=== PATIENT | male | born 1950 | race Caucasian/White ===

== ENCOUNTER 2025-04-29 13:18 | Outpatient (AMB) | payer MEDICARE, MEDICAID, SELFPAY ==
--- NOTE | 2025-04-29 13:20 | A.OFFVIS_ITS ---
Intake Visit Reasons: 6m Insomnia Allergies No Known Allergies Allergy (Unverified 04/29/25 13:22) Medication List - Last Reconciled 04/29/25 by Lu Monzon CNP apixaban (Eliquis) 5 mg PO BID atorvastatin 10 mg PO DAILY cholecalciferol (vitamin D3) 50 mcg PO QAM cyanocobalamin (vitamin B-12) 1,000 mcg IM QMONTH donepezil 10 mg PO DAILY finasteride 5 mg PO QAM methylphenidate HCl 5 mg PO QAM metoprolol succinate ER 25 mg PO QAM tamsulosin 0.8 mg PO DAILY venlafaxine ER 150 mg PO QAM zolpidem 10 mg PO BEDTIME HPI Comments Details: He fell about 1 week ago, was seen at [facility] ER and had CT which was apparently okay. Working with PT. Getting frontal headaches which he describes as feeling of heaviness with some light sensitivity about every other day. Has eye exam coming up. Sleep was about the same, able to sleep for a few hours with zolpidem which is being prescribed by psychiatry. Mood was so-so. Memory was about the same. Uses wheelchair, transfers from bed to chair. Hemiparesis stable. Sleeps for few hours with zolpidem and takes melatonin as needed. Does not nap during the day. Memory problems are mostly subjective, gives detailed interval history. 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 He's not had any blackout. His last CAT scan showed no change. His narcolepsy is controlled with the Ritalin. [facility] Medical History (Updated 04/29/25 @ 13:28 by Lu Monzon CNP) Hemiparesis Narcolepsy Insomnia Migraine Physical Exam Const Other: Unable to do due to televisit. Telehealth Telehealth Telehealth Platform: Telephone Location of provider rendering services: practice address Location of patient: address on file Patient Identification confirmed using: Name, : Yes Telehealth method: voice only Patient verbally consented to treatment: Yes Patient verbally consented to billing insurance company: Yes Assessment & Plan Assessment & Plan (1) Tension headache: Code(s): G44.209 - Tension-type headache, unspecified, not intractable Category: Medical Plan: Start amitriptyline 10mg 1 tablet at bedtime, use/side effects reviewed. Reviewed labs ordered. Follow up in 3 months or sooner as needed. (2) TBI (traumatic brain injury): Code(s): S06.9XAA - Unspecified intracranial injury with loss of consciousness status unknown, initial encounter Category: Medical Qualifiers: Encounter type: subsequent encounter Loss of consciousness presence/duration: unknown LOC status Qualified Code(s): S06.9XAD - Unspecified intracranial injury with loss of consciousness status unknown, subsequent encounter (3) Insomnia: Code(s): G47.00 - Insomnia, unspecified Category: Medical Qualifiers: Insomnia type: unspecified Qualified Code(s): G47.00 - Insomnia, unspecified Plan: He was taking zolpidem 10mg at bedtime prescribed by psychiatry. (4) Narcolepsy: Code(s): G47.419 - Narcolepsy without cataplexy Category: Medical Qualifiers: Narcolepsy type: due to underlying condition without cataplexy Qualified Code(s): G47.429 - Narcolepsy in conditions classified elsewhere without cataplexy Plan: He was taking methylphenidate 5mg daily prescribed by psychiatry. Plan . Orders: Orders C Reactive Protein Today G44.209 - Tension-type headache, unspecified, not intractable Erythrocyte Sedimentation Rate Today G44.209 - Tension-type headache, unspecified, not intractable Medications: New amitriptyline 10 mg PO BEDTIME 30 tabs 2RF 30 days Coding Level of Care Code Tele Est Pt Level 4 (09668) Diagnoses Tension headache G44.209 Traumatic brain injury, with unknown loss of consciousness status, subsequent encounter S06.9XAD Encounter type: subsequent encounter Loss of consciousness presence/duration: unknown LOC status Insomnia, unspecified type G47.00 Insomnia type: unspecified Narcolepsy due to underlying condition without cataplexy G47.429 Narcolepsy type: due to underlying condition without cataplexy
--- OUTSIDE RECORDS SUMMARY | 2025-04-29 15:18 | XMS_ITS | Clinical Summary ---
Author Organization [facility] Address [address] [place] [id number] Phone Care Team Providers Care Congressional Assistant Name Role Phone Prasad Nagy MD Primary Care Provide r Allergies Active Allergy Reactions Criticality Noted Date Comments Latex 11/16/2022 Adhesive 11/16/2022 Medications zolpidem (AMBIEN) 5 MG tablet Take 10 mg by mouth nightly at bedtime. Active atorvastatin (LIPITOR) 10 MG tablet Take 10 mg by mouth every evening. Active CYANOCOBALAMIN, VITAMIN B-12, INJ Inject as directed every 30 (thirty) days. Active donepeziL (ARICEPT) 10 MG tablet Take 10 mg by mouth every morning. Active polyethylene glycol (MIRALAX) 17 gram packet Take 17 g by mouth every other day. Active methylphenidate HCl (RITALIN) 5 MG tablet Take 5 mg by mouth 2 (two) times a day. Active tamsulosin (FLOMAX) 0.4 mg Cap Take 0.8 mg by mouth daily. Active venlafaxine (EFFEXOR-ER,) 150 mg TR24 Take 150 mg by mouth daily. Active cholecalciferol (VITAMIN D3) 25 MCG (1,000 unit) tablet Take 2,000 Units by mouth daily. Active acetaminophen (TYLENOL) 325 mg tablet Take 650 mg by mouth every 6 (six) hours as needed for fever or pain (specific location in comments). Active cyclobenzaprine (FLEXERIL) 5 MG tablet Take 5 mg by mouth every 8 (eight) hours as needed for muscle spasms. Active finasteride (PROSCAR) 5 mg tablet TAKE 1 TABLET BY MOUTH ONCE DAILY IN THE am 07/11/2023 Active ELIQUIS 5 mg tablet Take 5 mg by mouth 2 (two) times a day. Active hydroCHLOROthia zide 12.5 MG tablet TAKE 1 TABLET BY MOUTH ONCE DAILY IN THE am 02/26/2024 Active melatonin 5 mg Tab Take 1 tablet by mouth daily at 2am 04/29/2024 Active melatonin 5 mg Tab Take 1 tablet by mouth daily at 2am 02/21/2024 Active metoprolol succinate (TOPROL-XL) 25 MG 24 hr tablet TAKE 1 TABLET BY MOUTH DAILY IN THE am Active acetic acid (VOSOL) 2 % otic solution Place 4 drops into the left ear 3 (three) times a day. 15 mL 05/17/2024 Active BD LUER-LORI SYRINGE 3 mL 25 gauge x 1 Syrg Use as directed TO inject b12 shot ONCE 02/11/2025 Active Active Problems Problem Noted Date Diagnosed Date Stage 3b chronic kidney disease 03/18/2024 S/p nephrectomy 03/18/2024 Osteoarthritis of wrist 07/29/2023 Neurogenic bladder 07/29/2023 Narcolepsy 07/29/2023 Left-sided weakness 07/29/2023 Hypertension 07/29/2023 Benign localized prostatic h yperplasia with lower urinary tract symptoms (LUTS) 07/29/2023 Traumatic brain injury 07/29/2023 Encounters Date Type Department Care Team Description 04/16/2025 8:05 AM EST - 04/16/2025 2:17 PM EST Emergency [facility] [address] [place] [id number] Gilbert Mo MD Discharge Disposition: Home or Self Care 04/16/2025 Procedure Pass [facility], Ct Scan - [address] [address] 04/16/2025 Procedure Pass [facility], Ct Scan - [address] [address] 03/06/2025 10:30 PM EDT Ancillary Procedure [facility], Ultrasound - [address] [address] Angélica Phelps MD 03/06/2025 8:16 PM EDT - 03/07/2025 6:14 AM EDT Emergency [facility] [address] [place] [address] Angélica Phelps MD Discharge Disposition: Short Term Hospital 03/06/2025 Procedure Pass [facility], Ct Scan - [facility] [address] [place] [address] 02/27/2025 10:20 AM EDT Office Visit [facility] at [address] [address] Heidy Ghotra, TELESALES SPECIALIST Left-sided thoracic back pain, unspecified chronicity (Primary Dx) from Last 3 Months Immunizations Immunization Administration Dates Next Due INFLUENZA, SPLIT VIRUS, TRIV ALENT W/ PRESERVATIVE IM 03/01/2018,05/11/2017,05/02/2016,05/25 Pneumococcal conjugate PCV13 04/10/2014 Pneumococcal polysaccharide PPSV23 08/29/2012 Tdap 11/02/2015 Social History Tobacco Use Types Packs/Day Years Used Date Smoking Tobacco: Former Cigarettes Smokeless Tobacco: Never Tobacco Cessation:Counseling Given: Not Answered Alcohol Use Standard Drinks/Week Comments Not Currently 0 (1 standard drink = 0.6 oz pur e alcohol) Education Answer Date Recorded Are you interested in more education? Not on sunday e 11/16/2022 Are you concerned about learning? Not on file 11/16/2022 No 11/16/2022 No 11/16/2022 Food Answer Date Recorded Within the past 6 months we worried whether our food would run out before we got money to buy more. Never True 04/16/2025 Within the past 6 months the food we bought just didn't last and we didn't have enough money to get more. Never True Residential Stability Answer Date Recor ded What is your housing situation today? I have audra sing 04/16/2025 How many times have you move d in the past 12 months? Zero (I did not move) 04/16/2025 Paying for Meds Answer Date Recorded Do you have trouble paying for medicines? No 04/16/2025 Paying Utility Bills Answer Date Record ed Do you have trouble paying your heating or elect ricity bill? No 04/16/2025 Transportation Answer Date Recorded Has the lack of transportati on kept you from medical appointments or from getting medications? No 04/16/2025 Digital Access Answer Date Recorded No 04/16/2025 Yes 04/16/2025 Do you have reliable internet access at home? Ye s 04/16/2025 Do you have a device (e.g., phone, tablet, computer) with a working camera? Yes 04/16/2025 Intimate Partner Violence Answer Date R ecorded Are you denied basic needs s uch as food, clothing, or medical care? No 04/16/2025 In the past 12 months have y ou been in a relationship with a person who hurts, threatens, or tries to control you? No 04/16/2025 Are you denied basic needs s uch as food, clothing, or medical care? No 04/16/2025 In the past 12 months have y ou been in a relationship with a person who hurts, threatens, or tries to control you? No 04/16/2025 Sex and Gender Information Value Date Recorded Sex Assigned at Male 11/16/2022 2:02 PM EDT Legal Sex Male 1:44 PM EDT Gender Identity Male 11/16/2022 2:02 PM EDT Sexual Orientation Straight 07/06/2023 9: 15 AM EST Last Filed Vital Signs Vital Sign Reading Time Taken Comments Blood Pressure 135/94 04/16/2025 1:59 PM EST Pulse 74 04/16/2025 1:59 PM EST Temperature 36.8 C (98.2 F) 04/16/2025 1:59 PM EST Respiratory Rate 12 04/16/2025 1:59 PM EST Oxygen Saturation 99% 04/16/2025 1:59 PM EST Inhaled Oxygen Concentration - - Weight 81.6 kg (180 lb) 02/27/2025 10:35 AM EDT Height 172.7 cm (5' 8 ) 02/27/2025 10:35 AM EDT Body Mass Index 27.37 02/27/2025 10:35 AM EDT Plan of Treatment Health Maintenance Due Date Last Done Comments LIPID PANEL 1948 DEPRESSION SCREENING 1960 SMOKING Hx and SMOKELESS TOBACCO SCREENING 1961 HEPATITIS C SCREENING 1966 ZOSTER VACCINES (1 of 2) 1998 PNEUMOCOCCAL VACCINES (50+ years) (3 of 3 - PCV20 or PCV21) 04/10/2019 04/10/2014, 08/29/2012 RSV VACCINE (1 - 1-dose 75+ series) 12/24/2023 INFLUENZA VACCINE (#1) 2024 8, 05/11/2017, 05/02/2016, Additional history exists COVID-19 VACCINE ( - season) 2025 BLOOD PRESSURE 08/28/2025 02/27/2025 Adult Td,Tdap Booster 11/01/2025 11/02/2015 CREATININE LEVEL 03/06/2026 03/06/2025, , 03/18/2024, Additional history exists POTASSIUM LEVEL 03/06/2026 03/06/2025, 07/28, 03/18/2024, Additional history exists HEPATITIS A VACCINES Aged Out No long er eligible based on patient's age to complete this topic HIB VACCINES Aged Out No longer eligi ble based on patient's age to complete this topic MENINGOCOCCAL VACCINES (ACWY) Aged Out No longer eligible based on patient's age to complete this topic MENINGOCOCCAL VACCINES (B) Aged Out N o longer eligible based on patient's age to complete this topic Medical Devices Not on file Procedures Procedure Name Priority Date/Time Associated Diagnosis Comments XR HIP 2 VW LEFT PLUS PELVIS Routine 04/16/2025 8:45 AM EST ECG 12-LEAD STAT 04/16/2025 8:[address] CERVICAL SPINE WITHOUT CONTRAST Routine 04/16/2025 8:[address] HEAD WITHOUT CONTRAST Routine 04/16/2025 8:[address] ANGIO LOWER EXTREMITY WITH AND WITHOUT CONTRAST (LEFT) Routine 03/07/2025 12:36 AM EDT LACTIC ACID (LACTATE) STAT 03/06/2025 11:00 PM EDT PT-INR STAT 03/06/2025 11:00 PM EDT CBC AND DIFFERENTIAL STAT 03/06/2025 11:00 PM EDT BASIC METABOLIC PANEL (BMP) STAT 03/06/2025 11:00 PM EDT US BEDSIDE Routine 03/06/2025 10:25 PM EDT from Last 3 Months Results * XR HIP 2 VW LEFT PLUS PELVIS (04/16/2025 8:45 AM EST) Anatomical Region Laterality Modality Hip Left Computed Radiogr aphy 04/16/2025 8:54 AM EST Impressions 04/16/2025 8:57 AM EST No displaced fracture. Narrative 04/16/2025 8:57 AM EST XR HIP 2 VW LEFT PLUS PELVIS Referring clinician's provided indication for this examination in [facility]: S/P Fall COMPARISON: CT ABDOMEN/PELVIS (KIDNEY STONE) WITHOUT CONTRAST FINDINGS: Pelvis: No acute displaced fracture. Intact sacroiliac joints and pubic symphysis. Chronic deformities along the pubic bodies, right greater than left. Frontal evaluation of the right hip demonstrates moderate degenerative changes. Left hip: No acute displaced fracture. Moderate degenerative changes. Procedure Note Courtney Jose MD - 04/16/2025 XR HIP 2 VW LEFT PLUS PELVIS Referring clinician's provided indication for this examination in Epic:S/P Fall COMPARISON: CT ABDOMEN/PELVIS (KIDNEY STONE) WITHOUT [id number] FINDINGS: Pelvis: No acute displaced fracture. Intact sacroiliac joints and pubicsymphysis. Chronic deformities along the pubic bodies, right greater thanleft. Frontal evaluation of the right hip demonstrates moderatedegenerative changes. Left hip: No acute displaced fracture. Moderate degenerative changes. IMPRESSION: No displaced fracture. us Gilbert Mo MD IMG XR PELVIS Final Resu lt * ECG 12-LEAD (04/16/2025 8:29 AM EST) Ventricular Rate EKG/MIN 67 BPM [facility] Atrial Rate 55 BPM [facility] QRS Duration 84 ms [facility] QT Interval 412 ms [facility] QTC Interval 435 ms [facility] R Wave Boomer 4 degrees [facility] T Wave Boomer -6 degrees [facility] 04/16/2025 8:29 AM EST 04/16/2025 12:59 PM EST Narrative [facility] - 04/16/2025 12:59 PM EST Atrial fibrillation Moderate voltage criteria for LVH, may be normal variant Abnormal ECG When compared with ECG of 14-Sep-2024 02:28, T wave inversion now evident in Inferior leads Confirmed by Eusebio Pichardo ([id number]) on 04/16/2025 12:59:23 PM us Gilbert Mo MD ECG ORDERABLES Final Resu lt [facility] * CT CERVICAL SPINE WITHOUT CONTRAST (04/16/2025 8:04 AM EST) Anatomical Region Laterality Modality C-spine Computed Tomogra phy 04/16/2025 8:16 AM EST Impressions 04/16/2025 8:22 AM EST 1. No acute intracranial findings. 2. No acute fracture or traumatic malalignment of the cervical spine. Narrative 04/16/2025 8:[address] HEAD WITHOUT CONTRAST, CT CERVICAL SPINE WITHOUT CONTRAST Referring clinician's provided indication for this examination in [facility]: * Head trauma, minor (Age >= 65y); on eliquis TECHNIQUE: CTs of the head and cervical spine were performed without intravenous contrast using tailored dose modulation techniques. Images were reconstructed in the axial, coronal, and sagittal planes. COMPARISON: CT HEAD WITHOUT CONTRAST FINDINGS: HEAD: Brain Parenchyma: No midline shift, mass effect, parenchymal hemorrhage, or evidence of acute territorial infarct. Hypodensities in the periventricular white matter, likely a manifestation of chronic small vessel disease. Similar areas of encephalomalacia in the parietal lobes at the vertex related to prior MCA territory infarcts. Ventricular System and Extra-Axial Spaces: The ventricles and sulci are prominent. No extra-axial fluid collections. Basilar cisterns are patent. No hydrocephalus. Osseous and Extracranial Structures: No calvarial fracture or significant soft tissue hematoma. No significant paranasal sinus disease. The mastoid air cells are well aerated. No acute orbital abnormality. CERVICAL SPINE: Alignment and Vertebrae: No acute fracture or malalignment. Vertebral bodies and posterior elements are intact. Discs and Endplates: Multilevel degenerative changes. Other Findings: The spinal canal is patent. No paraspinal hematoma. No pneumothorax in the lung apices. Procedure Note Courtney Jose MD - 04/16/2025 CT HEAD WITHOUT CONTRAST, CT CERVICAL SPINE WITHOUT CONTRAST Referring clinician's provided indication for this examination in [facility]: *Head trauma, minor (Age >= 65y); on eliquis TECHNIQUE: CTs of the head and cervical spine were performed withoutintravenous contrast using tailored dose modulation techniques. Imageswere reconstructed in the axial, coronal, and sagittal planes. COMPARISON: CT HEAD WITHOUT CONTRAST FINDINGS: HEAD: Brain Parenchyma: No midline shift, mass effect, parenchymal hemorrhage,or evidence of acute territorial infarct. Hypodensities in theperiventricular white matter, likely a manifestation of chronic smallvessel disease. Similar areas of encephalomalacia in the parietal lobes atthe vertex related to prior MCA territory infarcts. Ventricular System and Extra-Axial Spaces: The ventricles and sulci areprominent. No extra-axial fluid collections. Basilar cisterns are patent.No hydrocephalus. Osseous and Extracranial Structures: No calvarial fracture or significantsoft tissue hematoma. No significant paranasal sinus disease. The mastoidair cells are well aerated. No acute orbital abnormality. CERVICAL SPINE: Alignment and Vertebrae: No acute fracture or malalignment. Vertebralbodies and posterior elements are intact. Discs and Endplates: Multilevel degenerative changes. Other Findings: The spinal canal is patent. No paraspinal hematoma. Nopneumothorax in the lung apices. IMPRESSION: 1. No acute intracranial findings. 2. No acute fracture or traumatic malalignment of the cervical spine. Gilbert Mo MD IMG CT XSPECIALTY ORDERABL ES Final Result * CT HEAD WITHOUT CONTRAST (04/16/2025 8:04 AM EST) Anatomical Region Laterality Modality Head Computed Tomogra phy 04/16/2025 8:16 AM EST Impressions 04/16/2025 8:22 AM EST 1. No acute intracranial findings. 2. No acute fracture or traumatic malalignment of the cervical spine. Narrative 04/16/2025 8:[address] HEAD WITHOUT CONTRAST, CT CERVICAL SPINE WITHOUT CONTRAST Referring clinician's provided indication for this examination in [facility]: * Head trauma, minor (Age >= 65y); on eliquis TECHNIQUE: CTs of the head and cervical spine were performed without intravenous contrast using tailored dose modulation techniques. Images were reconstructed in the axial, coronal, and sagittal planes. COMPARISON: CT HEAD WITHOUT CONTRAST FINDINGS: HEAD: Brain Parenchyma: No midline shift, mass effect, parenchymal hemorrhage, or evidence of acute territorial infarct. Hypodensities in the periventricular white matter, likely a manifestation of chronic small vessel disease. Similar areas of encephalomalacia in the parietal lobes at the vertex related to prior MCA territory infarcts. Ventricular System and Extra-Axial Spaces: The ventricles and sulci are prominent. No extra-axial fluid collections. Basilar cisterns are patent. No hydrocephalus. Osseous and Extracranial Structures: No calvarial fracture or significant soft tissue hematoma. No significant paranasal sinus disease. The mastoid air cells are well aerated. No acute orbital abnormality. CERVICAL SPINE: Alignment and Vertebrae: No acute fracture or malalignment. Vertebral bodies and posterior elements are intact. Discs and Endplates: Multilevel degenerative changes. Other Findings: The spinal canal is patent. No paraspinal hematoma. No pneumothorax in the lung apices. Procedure Note Courtney Jose MD - 04/16/2025 CT HEAD WITHOUT CONTRAST, CT CERVICAL SPINE WITHOUT CONTRAST Referring clinician's provided indication for this examination in [facility]: *Head trauma, minor (Age >= 65y); on eliquis TECHNIQUE: CTs of the head and cervical spine were performed withoutintravenous contrast using tailored dose modulation techniques. Imageswere reconstructed in the axial, coronal, and sagittal planes. COMPARISON: CT HEAD WITHOUT CONTRAST FINDINGS: HEAD: Brain Parenchyma: No midline shift, mass effect, parenchymal hemorrhage,or evidence of acute territorial infarct. Hypodensities in theperiventricular white matter, likely a manifestation of chronic smallvessel disease. Similar areas of encephalomalacia in the parietal lobes atthe vertex related to prior MCA territory infarcts. Ventricular System and Extra-Axial Spaces: The ventricles and sulci areprominent. No extra-axial fluid collections. Basilar cisterns are patent.No hydrocephalus. Osseous and Extracranial Structures: No calvarial fracture or significantsoft tissue hematoma. No significant paranasal sinus disease. The mastoidair cells are well aerated. No acute orbital abnormality. CERVICAL SPINE: Alignment and Vertebrae: No acute fracture or malalignment. Vertebralbodies and posterior elements are intact. Discs and Endplates: Multilevel degenerative changes. Other Findings: The spinal canal is patent. No paraspinal hematoma. Nopneumothorax in the lung apices. IMPRESSION: 1. No acute intracranial findings. 2. No acute fracture or traumatic malalignment of the cervical spine. Gilbert Mo MD IMNatalie CT HEAD/NECK Final Res ult * CT ANGIO LOWER EXTREMITY WITH AND WITHOUT CONTRAST (LEFT) (03/07/2025 12:36 AM EDT) Anatomical Region Laterality Modality Foot Left, Ankle Left, Knee Left, Thigh Left, Hi p Left Computed Tomography 03/07/2025 4:33 AM EDT Impressions 03/07/2025 4:47 AM EDT Impression: 1. Diffuse atheromatous disease of the left lower extremity arterial vasculature with short segment occlusion of the anterior tibial artery with reconstitution of the dorsalis pedis artery. 2. Occlusion of the proximal posterior tibial artery with distal reconstitution at the level of the ankle. 3. Short segment occlusion of the origin of the peroneal artery with immediate reconstitution and otherwise patency throughout its course. 4. Diffuse subcutaneous edema in the distal left lower extremity. Narrative 03/07/2025 4:47 AM EDT Procedure: CT ANGIO LOWER EXTREMITY WITH AND WITHOUT CONTRAST (LEFT) Technique: Axial images of the lower pelvis and the were obtained from the level of L4 to the feet before and following administration of intravenous contrast per dissection protocol. 3-D MIP images were made from the axial postcontrast data set and reviewed. History: 74 years Male * Claudication or leg ischemia Comparison: Lower extremity ultrasound from May 08, 2024 Findings: Abdominal vasculature: Abdominal/pelvic arterial vasculature: Distal Abdominal Aorta: Diffuse atheromatous disease without aneurysmal dilation. Origin of the HUMBERTO is patent. Iliac Arteries: Diffuse atheromatous disease of the left common iliac artery with chronic appearing focal dissection versus ulcerative plaque. Moderate stenosis of the origin of the internal iliac artery. No significant stenosis of the external iliac artery. Left lower extremity arterial tree: Evaluation of the level of the knee is limited secondary to streak artifact. Common Femoral Artery: The common femoral artery is normal in caliber without flow limiting stenosis. Superficial Femoral Artery: There is mild ASVD of the superficial femoral artery, but this is not flow limiting. Popliteal Artery: Multifocal atheromatous disease with moderate stenosis. Trifurcation: Multifocal atheromatous disease of the anterior tibial artery with occlusion proximally and reconstitution of the dorsalis pedis artery. The posterior tibial artery is occluded proximally with distal reconstitution at the level of the ankle and patent plantar arteries. Short segment occlusion of the origin of the peroneal artery with immediate reconstitution and patency throughout its course. Lower abdomen: Bowel: No evidence of obstruction within the [id number]. Colonic diverticulosis. Bladder: Urinary bladder is distended without wall thickening. Osseous structures: Chronic fracture deformity of the right superior and inferior pubic rami. Multilevel degenerative change of the partially visualized spine. Degenerative changes of the left knee and ankle. Prior left inguinal hernia repair. Diffuse subcutaneous edema in the distal left lower extremity. Procedure Note Dm Stephen MD - 03/07/2025 Procedure: CT ANGIO LOWER EXTREMITY WITH AND WITHOUT CONTRAST (LEFT) Technique: Axial images of the lower pelvis and the were obtained from thelevel of L4 to the feet before and following administration of intravenouscontrast per dissection protocol. 3-D MIP images were made from the axialpostcontrast data set and reviewed. History: 74 years Male * Claudication or leg ischemia Comparison: Lower extremity ultrasound from May 08, 2024 Findings: Abdominal vasculature: Abdominal/pelvic arterial vasculature: Distal Abdominal Aorta: Diffuse atheromatous disease without aneurysmaldilation. Origin of the HUMBERTO is patent. Iliac Arteries: Diffuse atheromatous disease of the left common iliacartery with chronic appearing focal dissection versus ulcerative plaque.Moderate stenosis of the origin of the internal iliac artery. Nosignificant stenosis of the external iliac artery. Left lower extremity arterial tree: Evaluation of the level of the knee is limited secondary to streakartifact. Common Femoral Artery: The common femoral artery is normal in caliberwithout flow limiting stenosis. Superficial Femoral Artery: There is mild ASVD of the superficial femoralartery, but this is not flow limiting. Popliteal Artery: Multifocal atheromatous disease with moderatestenosis. Trifurcation: Multifocal atheromatous disease of the anterior tibialartery with occlusion proximally and reconstitution of the dorsalis pedisartery. The posterior tibial artery is occluded proximally with distalreconstitution at the level of the ankle and patent plantar arteries.Short segment occlusion of the origin of the peroneal artery withimmediate reconstitution and patency throughout its course. Lower abdomen: Bowel: No evidence of obstruction within the [id number]. Colonicdiverticulosis. Bladder: Urinary bladder is distended without wall thickening. Osseous structures: Chronic fracture deformity of the right superior andinferior pubic rami. Multilevel degenerative change of the partiallyvisualized spine. Degenerative changes of the left knee and ankle. Priorleft inguinal hernia repair. Diffuse subcutaneous edema in the distal leftlower extremity. IMPRESSION: Impression: 1. Diffuse atheromatous disease of the left lower extremity arterialvasculature with short segment occlusion of the anterior tibial arterywith reconstitution of the dorsalis pedis artery. 2. Occlusion of the proximal posterior tibial artery with distalreconstitution at the level of the ankle. 3. Short segment occlusion of the origin of the peroneal artery withimmediate reconstitution and otherwise patency throughout its course. 4. Diffuse subcutaneous edema in the distal left lower extremity. us Angélica Phelps MD IMG CT EXTREMITY Final Resul t * (ABNORMAL) PT-INR (03/06/2025 11:00 PM EDT) PT 14.6(H) 10.2 - 12.9 sec [facility] INR 1.2(H) 0.9 - 1.1 [facility] Comment:Therapeutic range fo r oral Vitamin K antagonists: 2.0-3.5 Blood 03/06/2025 11:0 0 PM EDT 03/06/2025 11:03 PM EDT us Angélica Phelps MD LAB BLOOD BKR ORDERABLES Fin al Result [facility] [address] [place], [place] [id number] * (ABNORMAL) CBC and differential (03/06/2025 11:00 PM EDT) WBC 6.14 4.00 - 11.00 K/uL [facility] RBC 4.57 4.50 - 5.90 M/uL [facility] HGB 13.0(L) 13.5 - 17.5 g/dL [facility] HCT 40.5(L) 41.0 - 53.0 % [facility] PLT 155 150 - 450 K/uL [facility] MCV 88.6 80.0 - 100.0 [facility] MCH 28.4 27.0 - 31.0 pg [facility] MCHC 32.1 32.0 - 36.0 g/dL [facility] RDW 13.5 11.5 - 14.5 % [facility] MPV 10.0 8.4 - 12.0 fL [facility] NRBC 0.00 0.00 /100 WBCs [facility] ABSOLUTE NRBC 0.00 0.00 K/uL [facility] DIFF METHOD Auto [facility] NEUTS 57.0 48.0 - 76.0 % [facility] LYMPHS 27.5 18.0 - 41.0 % [facility] MONOS 10.9 4.0 - 11.0 % [facility] EOS 4.1 0.0 - 5.0 % [facility] BASOS 0.3 0.0 - 1.5 % [facility] Granulocytes, immature (%) 0.2 0.0 - 0.9 % [facility] ABSOLUTE NEUTS 3.50 1.92 - 7.60 K/uL [facility] ABSOLUTE LYMPHS 1.69 0.72 - 4.10 K/uL [facility] ABSOLUTE MONOS 0.67 0.16 - 1.10 K/uL [facility] ABSOLUTE EOS 0.25 0.00 - 0.50 K/uL [facility] ABSOLUTE BASOS 0.02 0.00 - 0.15 K/uL [facility] Granulocytes, immature 0.01 0.00 - 0.09 K/uL [facility] Blood 03/06/2025 11:0 0 PM EDT 03/06/2025 11:03 PM EDT Angélica Phelps MD LAB BLOOD BKR ORDERABLES Fin al Result Performing Organization Address [facility]/ZIP Co de Phone Number [address] [address] * Lactate (03/06/2025 11:00 PM EDT) LACTATE 0.80 0.50 - 2.20 mmol/L [facility] Blood 03/06/2025 11:0 0 PM EDT 03/06/2025 11:03 PM EDT Angélica Phelps MD LAB BLOOD BKR ORDERABLES Fin al Result Performing Organization Address City/[facility]/ZIP Co de Phone Number [address] [address] * (ABNORMAL) Basic metabolic panel (03/06/2025 11:00 PM EDT) SODIUM 139 133 - 146 mmol/L [facility] CHLORIDE 104 96 - 108 mmol/L [facility] POTASSIUM 4.8 3.3 - 5.1 mmol/L [facility] CO2 26 21 - 35 mmol/L [facility] BUN 26(H) 6 - 19 mg/dL [facility] CREATININE 1.50 0.5 - 1.5 mg/dL [facility] GLUCOSE 95 70 - 99 mg/dL [facility] CALCIUM 9.0 8.4 - 10.3 mg/dL [facility] EGFR 48(L) >59 mL/min/1.7 3m2 [facility] Comment:Estimated glomerular filtration rate calculated using the CKD-EPI refit equation. ANION GAP 14 10 - 20 mmol/L [facility] Blood 03/06/2025 11:0 0 PM EDT 03/06/2025 11:03 PM EDT us Angélica Phelps MD LAB BLOOD BKR ORDERABLES Fin al Result [facility] [address] [place] [address] * US BEDSIDE (03/06/2025 10:25 PM EDT) Anatomical Region Laterality Modality Ultrasound Narrative 03/06/2025 10:25 PM EDT Angélica Phelps MD 03/06/2025 10:47 PM Bedside Ultrasound Date/Time: 03/06/2025 10:25 PM Performed by: Angélica Phelps MD Authorized by: Angélica Phelps MD Exam Type: Soft Tissue Soft Tissue Exam Findings & Impression: Indications: patient with pain Other Indications: Unable to palpate pulses Other Findings: Faint DP and PT pulses visualized on color doppler Overall Impression Comments: Faint pulses visualized on color doppler Images: Images Saved: Yes Accession Number: [id number] us Angélica Phelps MD IMG POINT OF CARE EXAMS Hollie l Result from Last 3 Months Insurance MEDICARE PART A & B [facility] MEDIC[facility] PART A & B [facility] PART A & B [place] PART A & [facility] MEDICARE PART A & [place] MED[place] PART A & B [facility] Care Teams Congressional Assistant Relationship Specialty Start Date End Date [facility] [address] [address] PCP - General Family Medicine 02/27/25 Additional Source Comments The information contained in this document represents components of the legal health record. It is not the complete legal health record.[facility]
--- OUTSIDE RECORDS SUMMARY | 2025-04-29 15:18 | XMS_ITS | Encounter Summary ---
Author Organization [facility] Address [address] [place] [phone] Phone Care Team Providers Care Byproducts Extractor Name Role Phone Mignon New MD Primary Care Provider + Prasad Nagy MD Primary Care Provide r Encounter Details Date Type Department Care Team (Late st Contact Info) Description 09/14/2024 Procedure Pass [facility], Ct Scan - [address] [address] Social History Tobacco Use Types Packs/Day Years Used Date Smoking Tobacco: Former Cigarettes Smokeless Tobacco: Never Alcohol Use Standard Drinks/Week Comments Not Currently 0 (1 standard drink = 0.6 oz pur e alcohol) Education Answer Date Recorded Are you interested in more education? Not on sunday e 11/16/2022 Are you concerned about learning? Not on file 11/16/2022 No 11/16/2022 No 11/16/2022 Digital Access Answer Date Recorded No 11/16/2022 No 11/16/2022 Reliable internet access at home? Not on file 11/16/2022 Device with a working camera? Not on file Intimate Partner Violence Answer Date R ecorded Are you denied basic needs s uch as food, clothing, or medical care? No 09/14/2024 In the past 12 months have y ou been in a relationship with a person who hurts, threatens, or tries to control you? No 09/14/2024 Are you denied basic needs s uch as food, clothing, or medical care? No 09/14/2024 In the past 12 months have y ou been in a relationship with a person who hurts, threatens, or tries to control you? No 09/14/2024 Sex and Gender Information Value Date Recorded Sex Assigned at Male 11/16/2022 2:02 PM EDT Legal Sex Male 1:44 PM EDT Gender Identity Male 11/16/2022 2:02 PM EDT Sexual Orientation Straight 07/06/2023 9: 15 AM EST documented as of this encounter Functional Status * Calculated C-SSRS Risk Score (Lifetime/Recent) Answer Date of Assessment Author No Risk Indicated 09/14/2024 2:11 AM EDT Bernadette Amaya RN * [place] Suicide Severity Rating Scale (Screener/Recent Self-Report) Question Answer Date of Assessment Author 1. Wish to be (Past 1 Month) No 09/14/2024 2:11 AM EDT Bernadette Amaya RN 2. Non-Specific Active Suici tejas Thoughts (Past 1 Month) No 09/14/2024 2:11 AM EDT Bernadette Amaya RN 6. Suicidal Behavior (Lifetime) No 2:11 AM EDT Bernadette Amaya RN documented as of this encounter Plan of Treatment Not on file documented as of this encounter Visit Diagnoses Not on filedocumented in this encounter Care Teams Byproducts Extractor Relationship Specialty Start Date End Date Mignon New MD [address] [place] [address] PCP - General Internal Medicine 05/03/24 02/26/25 [place] [address] [address] PCP - General Family Medicine 02/27/25 documented as of this encounter Additional Source Comments The information contained in this document represents components of the legal health record. It is not the complete legal health record.[facility]
--- OUTSIDE RECORDS SUMMARY | 2025-04-29 15:18 | XMS_ITS | Encounter Summary ---
Author Organization [facility] Address [address] [place] [phone] Phone Care Team Providers Care Abstract Writer Name Role Phone Mignon New MD Primary Care Provider + Prasad Nagy MD Primary Care Provide r Encounter Details Date Type Department Care Team (Late st Contact Info) Description 08/23/2024 Procedure Pass [facility], Ct Scan - [address] [address] Social History Tobacco Use Types Packs/Day Years [...] as food, clothing, or medical care? No 08/24/2024 In the past 12 months have y ou been in a relationship with a person who hurts, threatens, or tries to control you? No 08/24/2024 Are you denied basic needs s uch as food, clothing, or medical care? No 08/24/2024 In the past 12 months have y ou been in a relationship with a person who hurts, threatens, or tries to control you? No 08/24/2024 Sex and Gender Information Value Date Recorded Sex Assigned at Male 11/16/2022 2:02 PM EDT Legal Sex Male 1:44 PM EDT Gender Identity Male 11/16/2022 2:02 PM EDT Sexual Orientation Straight 07/06/2023 9: 15 AM EST documented as of this encounter Functional Status * Calculated C-SSRS Risk Score (Lifetime/Recent) Answer Date of Assessment Author No Risk Indicated 08/24/2024 12:12 AM EDT Samantha Alvarado RN * [place] Suicide Severity Rating Scale (Screener/Recent Self-Report) Question Answer Date of Assessment Author 1. Wish to be (Past 1 Month) No 08/24/2024 12:12 AM EDT Fe Mcmahon RN 2. Non-Specific Active Suici tejas Thoughts (Past 1 Month) No 08/24/2024 12:12 AM EDT Tammi Mcmahon RN 6. Suicidal Behavior (Lifetime) No 12:12 AM EDT Samantha Mcmahon RN documented as of this encounter Plan of Treatment Not on file documented as of this encounter Visit Diagnoses Not on filedocumented in this encounter Care Teams Abstract Writer Relationship Specialty Start Date End Date Mignon New MD [address] [place] [address] PCP - General Internal Medicine 05/03/24 02/26/25 [place] [address] [address] PCP - General Family Medicine 02/27/25 documented as of this encounter Additional Source Comments The information contained in this document represents components of the legal health record. It is not the complete legal health record.[facility]
--- OUTSIDE RECORDS SUMMARY | 2025-04-29 15:18 | XMS_ITS | Encounter Summary ---
Author Organization [facility] Address [address] [place] [address] Phone Care Team Providers Care Construction Manager Name Role Phone Mignon New MD Primary Care Provider + Prasad Nagy MD Primary Care Provide r Encounter Details Date Type Department Care Team (Late st Contact Info) Description 06/21/2024 Procedure Pass [facility], Ct Scan - [address] [address] Social History Tobacco Use Types Packs/Day Years [...] as food, clothing, or medical care? No 06/21/2024 In the past 12 months have y ou been in a relationship with a person who hurts, threatens, or tries to control you? No 06/21/2024 Are you denied basic needs s uch as food, clothing, or medical care? No 06/21/2024 In the past 12 months have y ou been in a relationship with a person who hurts, threatens, or tries to control you? No 06/21/2024 Sex and Gender Information Value Date Recorded Sex Assigned at Male 11/16/2022 2:02 PM EDT Legal Sex Male 1:44 PM EDT Gender Identity Male 11/16/2022 2:02 PM EDT Sexual Orientation Straight 07/06/2023 9: 15 AM EST documented as of this encounter Functional Status * Calculated C-SSRS Risk Score (Lifetime/Recent) Answer Date of Assessment Author No Risk Indicated 06/21/2024 2:51 AM Rolo Schmidt RN * [place] Suicide Severity Rating Scale (Screener/Recent Self-Report) Question Answer Date of Assessment Author 1. Wish to be (Past 1 Month) No 06/21/2024 2:51 AM Rolo Schmidt RN 2. Non-Specific Active Suicidal Thoughts (Past 1 Month) No 06/21/2024 2:51 AM Rolo Schmidt RN 6. Suicidal Behavior (Lifetime) No 06/21/2024 2:51 AM Rolo Schmidt RN documented as of this encounter Plan of Treatment Not on file documented as of this encounter Visit Diagnoses Not on filedocumented in this encounter Care Teams Construction Manager Relationship Specialty Start Date End Date Mignon New MD [address] [place] [address] PCP - General Internal Medicine 05/03/24 02/26/25 Prasad Nagy MD [address] [address] [place] [address] PCP - General Family Medicine 02/27/25 documented as of this encounter Additional Source Comments The information contained in this document represents components of the legal health record. It is not the complete legal health record.[facility]
--- OUTSIDE RECORDS SUMMARY | 2025-04-29 15:18 | XMS_ITS | Encounter Summary ---
Author Organization [facility] Address [address] [place] [phone] Phone Care Team Providers Care Braider Tender Name Role Phone Mignon New MD Primary Care Provider + Prasad Nagy MD Primary Care Provide r Encounter Details Date Type Department Care Team (Late st Contact Info) Description 06/21/2024 Procedure Pass [facility], Ct Scan - [address] [address] Social History Tobacco Use Types Packs/Day Years [...] 06/21/2024 2:51 AM Rolo Schmidt RN * [place] Suicide Severity Rating Scale (Screener/Recent Self-Report) Question [...] on filedocumented in this encounter Care Teams Braider Tender Relationship Specialty Start Date End Date Mignon New MD [address] [place] [address] PCP - General Internal Medicine 05/03/24 02/26/25 Prasad Nagy MD [address] [address] [place] [address] PCP - General Family Medicine 02/27/25 documented as of this encounter Additional Source Comments The information contained in this document represents components of the legal health record. It is not the complete legal health record.[facility]
--- OUTSIDE RECORDS SUMMARY | 2025-04-29 15:18 | XMS_ITS | Encounter Summary ---
Author Organization [facility] Address [address] [facility] [address] [place] [address] Phone Care Team Providers Care Agriculture Intern Name Role Phone Unknown, Unknown Primary Care Provider Mignon Salinas MD Primary Care Provider + Prasad Nagy MD Primary Care Provide r Reason for Referral * MRI/CAT Scan - Closed Specialty Diagnoses / Procedures Referred By Contac t Referred To Contact Radiology Diagnoses S/p nephrectomy Procedures CT Abdomen Only (No Pelvis) Bernard Luz MD [address] [address] Phone: tel: fax: [email or web address] Referral ID Status Reason Start Date Expiration Date Visits Re quested Visits Authorized [id number] Closed 03/21/2024 03/21/2025 1 1 Encounter Details Date Type Department Care Team (Latest Contact Info) Description 03/21/2024 Transcribe Orders Virtual Department [address] [place] [address] Bernard Luz MD [address] [address] [email or web address] S/p nephrectomy (Primary Dx) Social History Tobacco Use Types Packs/Day Years [...] with a working camera? Not on file Sex and Gender Information Value Date Recorded Sex Assigned at Male 11/16/2022 2:02 PM EDT Legal Sex Male 1:44 PM EDT Gender Identity Male 11/16/2022 2:02 PM EDT Sexual Orientation Straight 07/06/2023 9: 15 AM EST documented as of this encounter Plan of Treatment Not on file documented as of this encounter Results * CT ABDOMEN WITHOUT CONTRAST (05/03/2024 9:28 AM EST) [facility]GB IMG RECOMMENDATION COMMENT 4 mm left lower lobe pulmonary nodule; left lower lobe pulmonary surrounding groundglass; Differential: left lower lobe pulmonary infectious inflammatory process [facility] Anatomical Region Laterality Modality Abdomen, Abdominal Vasculature C omputed Tomography 05/06/2024 2:48 PM EST Impressions 05/06/2024 2:55 PM EST 1. Stable postsurgical changes status post left nephrectomy and adrenalectomy. No acute findings within the upper abdomen. 2. 4 mm left lower lobe pulmonary nodule with surrounding groundglass. This is favored to represent an infectious/inflammatory process. This is new when compared to 11/16/2022. Dedicated chest CT in 3 months should be considered to assess for resolution/stability. Narrative 05/06/2024 2:[address] ABDOMEN WITHOUT CONTRAST Referring clinician's provided indication for this examination in Epic: Outside Radiology Order; s/p nephrectomy TECHNIQUE: Multidetector-row CT of the abdomen was performed without intravenous contrast using tailored dose modulation techniques. Images were reconstructed in the axial, coronal, and sagittal planes. COMPARISON: Abdomen/pelvis CT 11/16/2022 ABSENCE OF INTRAVENOUS CONTRAST DECREASES SENSITIVITY FOR DETECTION OF FOCAL LESIONS AND VASCULAR PATHOLOGY. FINDINGS: Lower Chest: Calcified aortic annulus and leaflets. Moderate calcification of the mitral annulus. Calcification of the coronary arteries. Tiny hiatal hernia. Subpleural reticular opacities bilaterally, right greater than left. There is a 4 mm nodule in the left lower lobe (series 4, image 1:30) with surrounding groundglass, new when compared to prior. Liver: No focal lesions. Biliary: No biliary ductal dilatation. Spleen: No splenomegaly or focal lesions. Pancreas: No main pancreatic ductal dilation or peripancreatic inflammatory change. Extensive calcifications within the pancreatic parenchyma, likely vascular. Focal calcification within the pancreatic head are favored to represent parenchymal calcifications. Adrenal Glands: Mild thickening of the right adrenal gland. The left adrenal gland is surgically absent. Kidneys/Ureters: No right-sided hydronephrosis or nephrolithiasis. There is a subcentimeter right lateral mid renal lesion measuring 9 mm (series 3, image 33), too small to accurately characterize and not significantly changed. The left kidney is surgically absent. No suspicious findings within the nephrectomy bed within limitations of unenhanced technique. Bowel: There is no evidence of intestinal obstruction. Segments of the colon are collapsed and suboptimally assessed. Diverticulosis. No diverticulitis. The appendix is visualized and is normal. Peritoneum/Retroperitoneum: No masses, pneumoperitoneum, or fluid. Lymph Nodes: Scattered abdominopelvic lymph nodes which do not meet pathologic criteria by size. Vessels: Severe atherosclerotic vascular calcification. No evidence of aneurysm. Please note, patency cannot be assessed without intravenous contrast. Bones/Soft Tissues: Heterogeneous osseous demineralization. Healed right posterior rib fractures. Multilevel degenerative changes of the thoracolumbar spine. No destructive bony lytic or blastic lesions. Fatty infiltration of the abdominal musculature. Impression deformity of the L2 vertebral body, unchanged. Prominent superior endplate Schmorl's node formation. Minimal anterolisthesis of L4 on L5. Procedure Note Dorene Pederson MD - 05/06/2024 CT ABDOMEN WITHOUT CONTRAST Referring clinician's provided indication for this examination in Epic:Outside Radiology Order; s/p nephrectomy TECHNIQUE: Multidetector-row CT of the abdomen was performed withoutintravenous contrast using tailored dose modulation techniques. Imageswere reconstructed in the axial, coronal, and sagittal planes. COMPARISON: Abdomen/pelvis CT 11/16/2022 ABSENCE OF INTRAVENOUS CONTRAST DECREASES SENSITIVITY FOR DETECTION OFFOCAL LESIONS AND VASCULAR PATHOLOGY. FINDINGS: Lower Chest: Calcified aortic annulus and leaflets. Moderate calcificationof the mitral annulus. Calcification of the coronary arteries. Tiny hiatalhernia. Subpleural reticular opacities bilaterally, right greater thanleft. There is a 4 mm nodule in the left lower lobe (series 4, image 1:30)with surrounding groundglass, new when compared to prior. Liver: No focal lesions. Biliary: No biliary ductal dilatation. Spleen: No splenomegaly or focal lesions. Pancreas: No main pancreatic ductal dilation or peripancreaticinflammatory change. Extensive calcifications within the pancreaticparenchyma, likely vascular. Focal calcification within the pancreatichead are favored to represent parenchymal calcifications. Adrenal Glands: Mild thickening of the right adrenal gland. The leftadrenal gland is surgically absent. Kidneys/Ureters: No right-sided hydronephrosis or nephrolithiasis. Thereis a subcentimeter right lateral mid renal lesion measuring 9 mm (series3, image 33), too small to accurately characterize and not significantlychanged. The left kidney is surgically absent. No suspicious findingswithin the nephrectomy bed within limitations of unenhanced technique. Bowel: There is no evidence of intestinal obstruction. Segments of thecolon are collapsed and suboptimally assessed. Diverticulosis. Nodiverticulitis. The appendix is visualized and is normal. Peritoneum/Retroperitoneum: No masses, pneumoperitoneum, or fluid. Lymph Nodes: Scattered abdominopelvic lymph nodes which do not meetpathologic criteria by size. Vessels: Severe atherosclerotic vascular calcification. No evidence ofaneurysm. Please note, patency cannot be assessed without intravenouscontrast. Bones/Soft Tissues: Heterogeneous osseous demineralization. Healed rightposterior rib fractures. Multilevel degenerative changes of thethoracolumbar spine. No destructive bony lytic or blastic lesions. Fattyinfiltration of the abdominal musculature. Impression deformity of the [place] body, unchanged. Prominent superior endplate Schmorl's nodeformation. Minimal anterolisthesis of L4 on L5. IMPRESSION: 1. Stable postsurgical changes status post left nephrectomy andadrenalectomy. No acute findings within the upper abdomen. 2. 4 mm left lower lobe pulmonary nodule with surrounding groundglass.This is favored to represent an infectious/inflammatory process. This isnew when compared to 11/16/2022. Dedicated chest CT in 3 months should beconsidered to assess for resolution/stability. us Bernard Luz MD IMG CT XSPECIALTY ORDERABLES Fin al Result documented in this encounter Visit Diagnoses Diagnosis S/p nephrectomy- Primary Acquired absence of kidney S/p nephrectomy Acquired absence of kidney documented in this encounter Care Teams Agriculture Intern Relationship Specialty Start Date End Date Unknown, Unknown, MD PCP - General 03/19/24 05/02/24 Mignon New MD [address] [facility] [address] [place] [address] PCP - General Internal Medicine 05/03/24 02/26/25 Prasad Nagy MD [address] [facility] [address] [place] [address] PCP - General Family Medicine 02/27/25 documented as of this encounter Additional Source Comments The information contained in this document represents components of the legal health record. It is not the complete legal health record.[facility]
--- OUTSIDE RECORDS SUMMARY | 2025-04-29 15:18 | XMS_ITS | Encounter Summary ---
Author Organization [facility] Address [address] [facility] [address] [place] [address] Phone Care Team Providers Care Cardiovascular Technologist Name Role Phone Mignno New MD Primary Care Provider + Mignon New MD Primary Care Provider + Unknown, Unknown Primary Care Provider Mignon Salinas MD Primary Care Provider + Prasad Nagy MD Primary Care Provide r Encounter Details Date Type Department Care Team (Latest Contact Info) Description 09/26/2023 Transcribe Orders Virtual Department [address] [place] [address] Bernard Luz MD [address] [facility] [address] [place] [address] [email or web address] Stage 3a chronic kidney disease (Primary Dx); History of nephrectomy Social History Tobacco Use Types Packs/Day Years [...] documented as of this encounter Results * US Kidneys (10/10/2023 3:02 PM EDT) Anatomical Region Laterality Modality Abdomen, Kidney Ultrasound 10/10/2023 6:04 PM EDT Impressions 10/10/2023 6:05 PM EDT Unremarkable right kidney. Left nephrectomy. Narrative 10/10/2023 6:05 PM EDT US KIDNEYS Referring clinician's provided indication for this examination in [facility]: Outside Radiology Order; Stage 3a chronic kidney disease (HCC)// History of nephrectomy TECHNIQUE: Kidney Ultrasound. COMPARISON: CT November 16, 2022 FINDINGS: Right Kidney: Size: 9.9 cm 1.1 cm simple cyst. No stones or hydronephrosis. Left Kidney: Left nephrostomy Bladder: Normal. Procedure Note Alexi Lopez MD, LV - 10/10/2023 US KIDNEYS Referring clinician's provided indication for this examination in Epic:Outside Radiology Order; Stage 3a chronic kidney disease (HCC)// Historyof nephrectomy TECHNIQUE: Kidney Ultrasound. COMPARISON: CT November 16, 2022 FINDINGS: Right Kidney: Size: 9.9 cm 1.1 cm simple cyst. No stones or hydronephrosis. Left Kidney: Left nephrostomy Bladder: Normal. IMPRESSION: Unremarkable right kidney. Left nephrectomy. Bernard Luz MD [facility] US RENAL Final Result documented in this encounter Visit Diagnoses Diagnosis Stage 3a chronic kidney disease- Primary History of nephrectomy Acquired absence of kidney Stage 3a chronic kidney disease History of nephrectomy Acquired absence of kidney documented in this encounter Care Teams Cardiovascular Technologist Relationship Specialty Start Date End Date Mignon New MD PCP - General Internal Medicine 07/06/23 10/09/23 Mignon New MD PCP - General Internal Medicine 10/10/23 03/18/24 Unknown, Unknown, MD PCP - General 03/19/24 05/02/24 Mignon New MD [address] [place] [address] PCP - General Internal Medicine 05/03/24 02/26/25 Prasad Nagy MD [address] [facility] [address] [place] [address] PCP - General Family Medicine 02/27/25 documented as of this encounter Additional Source Comments The information contained in this document represents components of the legal health record. It is not the complete legal health record.[facility]
--- OUTSIDE RECORDS SUMMARY | 2025-04-29 15:18 | XMS_ITS | Encounter Summary ---
Author Organization [facility] Address [address] [place] [address] Phone Care Team Providers Care Assistant Professor Name Role Phone Pcp, Unknown Primary Care Provider Mignon Muller MD Primary Care Provider + Mignon New MD Primary Care Provider + Unknown, Unknown Primary Care Provider Mignon Salinas MD Primary Care Provider + Prasad Nagy MD Primary Care Provide r Encounter Details Date Type Department Care Team (Late st Contact Info) Description 11/16/2022 Procedure Pass [facility], Ct Scan - [address] [address] Social History Tobacco Use Types Packs/Day Years Used Date Smoking Tobacco: Former Cigarettes Alcohol Use Standard Drinks/Week Comments Not Currently [...] Date of Assessment Author No Risk Indicated 11/16/2022 2:02 PM EDT Marianne Padilla RN * [place] Suicide Severity Rating Scale (Screener/Recent Self-Report) Question Answer Date of Assessment Author 1. Wish to be (Past 1 Month) No 023 2:02 PM EDT Marianne Padilla RN 2. Non-Specific Active Suici tejas Thoughts (Past 1 Month) No 11/16/2022 2:02 PM EDT Marianne Padilla RN 6. Suicidal Behavior (Lifetime) No 2:02 PM EDT Marianne Padilla RN documented as of this encounter Plan of Treatment Not on file documented as of this encounter Visit Diagnoses Not on filedocumented in this encounter Care Teams Assistant Professor Relationship Specialty Start Date End Date Pcp, Unknown PCP - General 11/16/22 07/05/23 Mignon New MD PCP - General Internal Medicine 07/06/23 10/09/23 Mignon New MD PCP - General Internal Medicine 10/10/23 03/18/24 Unknown, Yaya, PCP - General 03/19/24 05/02/24 Mignon New MD [address] [facility] [address] [place] [address] PCP - General Internal Medicine 05/03/24 02/26/25 Prasad Nagy MD [address] [facility] [address] [place] [address] PCP - General Family Medicine 02/27/25 documented as of this encounter Additional Source Comments The information contained in this document represents components of the legal health record. It is not the complete legal health record.[facility]
--- OUTSIDE RECORDS SUMMARY | 2025-04-29 15:18 | XMS_ITS | Encounter Summary ---
Author Organization [facility] Address [address] [place] [address] Phone Care Team Providers Care Histology Assistant Name Role Phone Mignon New MD Primary Care Provider + Prasad Nagy MD Primary Care Provide r Encounter Details Date Type Department Care Team (Late st Contact Info) Description 05/17/2024 Procedure Pass [facility], Ct Scan - [address] [address] Social History Tobacco Use Types Packs/Day Years [...] as food, clothing, or medical care? No 05/17/2024 In the past 12 months have y ou been in a relationship with a person who hurts, threatens, or tries to control you? No 05/17/2024 Are you denied basic needs s uch as food, clothing, or medical care? No 05/17/2024 In the past 12 months have y ou been in a relationship with a person who hurts, threatens, or tries to control you? No 05/17/2024 Sex and Gender Information Value Date Recorded Sex Assigned at Male 11/16/2022 2:02 PM EDT Legal Sex Male 1:44 PM EDT Gender Identity Male 11/16/2022 2:02 PM EDT Sexual Orientation Straight 07/06/2023 9: 15 AM EST documented as of this encounter Functional Status * Calculated C-SSRS Risk Score (Lifetime/Recent) Answer Date of Assessment Author No Risk Indicated 05/17/2024 12:42 AM Amber Gunn RN * [place] Suicide Severity Rating Scale (Screener/Recent Self-Report) Question Answer Date of Assessment Author 1. Wish to be (Past 1 Month) No 05/17/2024 12:42 AM Amber Moore RN 2. Non-Specific Active Suici tejas Thoughts (Past 1 Month) No 05/17/2024 12:42 AM Jeff Moore RN 6. Suicidal Behavior (Lifetime) No 12:42 AM Amber Moore RN documented as of this encounter Plan of Treatment Not on file documented as of this encounter Visit Diagnoses Not on filedocumented in this encounter Care Teams Histology Assistant Relationship Specialty Start Date End Date Mignon New MD [address] [place] [address] PCP - General Internal Medicine 05/03/24 02/26/25 [place] [address] [address] PCP - General Family Medicine 02/27/25 documented as of this encounter Additional Source Comments The information contained in this document represents components of the legal health record. It is not the complete legal health record.[facility]
--- OUTSIDE RECORDS SUMMARY | 2025-04-29 15:18 | XMS_ITS | Encounter Summary ---
Author Organization [facility] Address [address] [place] [address] Phone Care Team Providers Care Algologist Name Role Phone Pcp, Unknown Primary Care Provider Mignon Muller MD Primary Care Provider + Mignon New MD Primary Care Provider + Unknown, Unknown Primary Care Provider Mignon Salinas MD Primary Care Provider + Prasad Nagy MD Primary Care Provide r Encounter Details Date Type Department Care Team (Late st Contact Info) Description 11/16/2022 Procedure Pass [facility], Ct Scan - [address] [address] Social History Tobacco Use Types Packs/Day Years [...] 2:02 PM EDT Marianne Padilla RN * [place] Suicide Severity Rating Scale (Screener/Recent Self-Report) Question [...] on filedocumented in this encounter Care Teams Algologist Relationship Specialty Start Date End Date Pcp, Unknown PCP - General 11/16/22 07/05/23 Mignon New MD PCP - General Internal Medicine 07/06/23 10/09/23 Mignon New MD PCP - General Internal Medicine 10/10/23 03/18/24 Unknown, Yaya, PCP - General 03/19/24 05/02/24 Mignon New MD [address] [facility] [address] [place] [address] PCP - General Internal Medicine 05/03/24 02/26/25 Prasad Nagy MD [address] [facility] [address] [place] [address] PCP - General Family Medicine 02/27/25 documented as of this encounter Additional Source Comments The information contained in this document represents components of the legal health record. It is not the complete legal health record.[facility]
--- OUTSIDE RECORDS SUMMARY | 2025-04-29 15:18 | XMS_ITS | Encounter Summary ---
Author Organization [facility] Address [address] [place] [address] Phone Care Team Providers Care Any Commodity Buyer Name Role Phone Prasad Nagy MD Primary Care Provide r Encounter Details Date Type Department Care Team (Late st Contact Info) Description 04/16/2025 Procedure Pass [facility], Ct Scan - [facility] [address] [place] [address] Social History Tobacco Use Types Packs/Day Years [...] Date of Assessment Author No Risk Indicated 04/16/2025 8:21 AM Cami Mixon RN * [place] Suicide Severity Rating Scale (Screener/Recent Self-Report) Question Answer Date of Assessment Author 1. Wish to be (Past 1 Month) No 04/16/2025 8:21 AM Cami Mixon RN 2. Non-Specific Active Suici tejas Thoughts (Past 1 Month) No 04/16/2025 8:21 AM Cami Mixon RN 6. Suicidal Behavior (Lifetime) No 8:21 AM Cami Mixon RN documented as of this encounter Plan of Treatment Not on file documented as of this encounter Visit Diagnoses Not on filedocumented in this encounter Care Teams Any Commodity Buyer Relationship Specialty Start Date End Date Prasad Nagy MD [address] [address] PCP - General Family Medicine 02/27/25 documented as of this encounter Additional Source Comments The information contained in this document represents components of the legal health record. It is not the complete legal health record.[facility]
--- OUTSIDE RECORDS SUMMARY | 2025-04-29 15:18 | XMS_ITS | Encounter Summary ---
Author Organization [facility] Address [address] [facility] [address] [place] [address] Phone Care Team Providers Care Wildlife Conservation Officer Name Role Phone Mignon New MD Primary Care Provider + Prasad Nagy MD Primary Care Provide r Encounter Details Date Type Department Care Team (Late st Contact Info) Description 08/23/2024 Procedure Pass [facility], Ct Scan - [address] [address] Social History Tobacco Use Types Packs/Day Years [...] 12:12 AM EDT Samantha Alvarado RN * [place] Suicide Severity Rating Scale (Screener/Recent Self-Report) Question [...] on filedocumented in this encounter Care Teams Wildlife Conservation Officer Relationship Specialty Start Date End Date Mignon New MD [address] [place] [address] PCP - General Internal Medicine 05/03/24 02/26/25 [place] [address] [address] PCP - General Family Medicine 02/27/25 documented as of this encounter Additional Source Comments The information contained in this document represents components of the legal health record. It is not the complete legal health record.[facility]
--- OUTSIDE RECORDS SUMMARY | 2025-04-29 15:18 | XMS_ITS | Encounter Summary ---
Author Organization [facility] Address [address] [place] [address] Phone Care Team Providers Care Pilot Boat Captain Name Role Phone Mignon New MD Primary Care Provider + Prasad Nagy MD Primary Care Provide r Encounter Details Date Type Department Care Team (Late st Contact Info) Description 05/17/2024 Procedure Pass [facility], Ct Scan - [address] [address] Social History Tobacco Use Types Packs/Day Years [...] 05/17/2024 12:42 AM Amber Gunn RN * [place] Suicide Severity Rating Scale (Screener/Recent Self-Report) Question [...] on filedocumented in this encounter Care Teams Pilot Boat Captain Relationship Specialty Start Date End Date Mignon New MD [address] [place] [address] PCP - General Internal Medicine 05/03/24 02/26/25 [place] [address] [address] PCP - General Family Medicine 02/27/25 documented as of this encounter Additional Source Comments The information contained in this document represents components of the legal health record. It is not the complete legal health record.[facility]
--- OUTSIDE RECORDS SUMMARY | 2025-04-29 15:18 | XMS_ITS | Encounter Summary ---
Author Organization [facility] Address [address] [place] [address] Phone Care Team Providers Care Home Performance Consultant Name Role Phone Unknown, Unknown Primary Care Provider Mignon Salinas MD Primary Care Provider + Prasad Nagy MD Primary Care Provide r Encounter Details Date Type Department Care Team (Late st Contact Info) Description 03/21/2024 Procedure Pass [facility], Ct Scan - [facility] [address] [place] [address] Social History Tobacco Use Types Packs/Day Years [...] on filedocumented in this encounter Care Teams Home Performance Consultant Relationship Specialty Start Date End Date Unknown, Unknown, MD PCP - General 03/19/24 05/02/24 Mignon New MD 299 [facility] [address] [place] [address] PCP - General Internal Medicine 05/03/24 02/26/25 Prasad Nagy MD [address] [facility] [address] [place] [address] PCP - General Family Medicine 02/27/25 documented as of this encounter Additional Source Comments The information contained in this document represents components of the legal health record. It is not the complete legal health record.[facility]
--- OUTSIDE RECORDS SUMMARY | 2025-04-29 15:18 | XMS_ITS ---
Author Name [facility] Organization Unknown History of Medication Use Medication Directions Dispensed Refills Start Date End Date Stat us methylphenidate HCl 03/04/2025 a ctive atorvastatin calcium 04/22/2024 active metoprolol succinate act noé donepezil HCl active venlafaxine HCl active finasteride active Encounters Encounter Type Encounter Reason Primary Diagnosis Location Date Ambulatory TBE Localized edema [facility] ([facility]) 03/06/2025 Care Team Organization Name Specialty Phone Email Start Date End Da te [facility] 03/12/2025 [facility] 03/06/2025
--- OUTSIDE RECORDS SUMMARY | 2025-04-29 15:18 | XMS_ITS | Encounter Summary ---
Author Organization [facility] Address [address] [place] [address] Phone Care Team Providers Care Webfed Offset Press Operator Name Role Phone Mignon New MD Primary Care Provider + Prasad Nagy MD Primary Care Provide r Encounter Details Date Type Department Care Team (Late st Contact Info) Description 08/24/2024 Procedure Pass [facility], Ct Scan - [address] [address] Social History Tobacco Use Types Packs/Day Years [...] 12:12 AM EDT Samantha Alvarado RN * [place] Suicide Severity Rating Scale (Screener/Recent Self-Report) Question Answer Date of Assessment Author 1. Wish to be (Past 1 Month) No 08/24/2024 12:12 AM EDT Fe Mcmahon RN 2. Non-Specific Active Suici tejas Thoughts (Past 1 Month) No 08/24/2024 12:12 AM EDT Tammi Mcmaohn RN 6. Suicidal Behavior (Lifetime) No 12:12 AM EDT Samantha Mcmahon RN documented as of this encounter Plan of Treatment Not on file documented as of this encounter Visit Diagnoses Not on filedocumented in this encounter Care Teams Webfed Offset Press Operator Relationship Specialty Start Date End Date Mignon New MD [address] [place] [address] PCP - General Internal Medicine 05/03/24 02/26/25 [place] [address] [address] PCP - General Family Medicine 02/27/25 documented as of this encounter Additional Source Comments The information contained in this document represents components of the legal health record. It is not the complete legal health record.[facility]
--- OUTSIDE RECORDS SUMMARY | 2025-04-29 15:18 | XMS_ITS | Encounter Summary ---
Author Organization [facility] Address [address] [place] [address] Phone Care Team Providers Care Swatch Checker Name Role Phone Mignon New MD Primary Care Provider + Prasad Nagy MD Primary Care Provide r Encounter Details Date Type Department Care Team (Late st Contact Info) Description 09/14/2024 Procedure Pass [facility], Ct Scan - [address] [address] Social History Tobacco Use Types Packs/Day Years [...] 2:11 AM EDT Bernadette Amaya RN * [place] Suicide Severity Rating Scale (Screener/Recent Self-Report) Question [...] on filedocumented in this encounter Care Teams Swatch Checker Relationship Specialty Start Date End Date Mignon New MD [address] [place] [address] PCP - General Internal Medicine 05/03/24 02/26/25 [place] [address] [address] PCP - General Family Medicine 02/27/25 documented as of this encounter Additional Source Comments The information contained in this document represents components of the legal health record. It is not the complete legal health record.[facility]
--- OUTSIDE RECORDS SUMMARY | 2025-04-29 15:19 | XMS_ITS | Encounter Summary ---
Author Organization [facility] Address [address] [place] [address] Phone Care Team Providers Care Maintenance Scheduler Name Role Phone Pcp, Unknown Primary Care Provider Mignon Muller MD Primary Care Provider + Mignon New MD Primary Care Provider + Unknown, Unknown Primary Care Provider Mignon Salinas MD Primary Care Provider + Prasad Nagy MD Primary Care Provide r Encounter Details Date Type Department Care Team (Late st Contact Info) Description 11/16/2022 Procedure Pass [facility], Ct Scan - [address] [address] Social History Tobacco Use Types Packs/Day Years [...] 2:02 PM EDT Marianne Padilla RN * [place] Suicide Severity Rating Scale (Screener/Recent Self-Report) Question [...] on filedocumented in this encounter Care Teams Maintenance Scheduler Relationship Specialty Start Date End Date Pcp, Unknown PCP - General 11/16/22 07/05/23 Mignon New MD PCP - General Internal Medicine 07/06/23 10/09/23 Mignon New MD PCP - General Internal Medicine 10/10/23 03/18/24 Unknown, Yaya, PCP - General 03/19/24 05/02/24 Mignon New MD 299 [facility] [address] [place] [address] PCP - General Internal Medicine 05/03/24 02/26/25 Prasad Nagy MD [address] [facility] [address] [place] [address] PCP - General Family Medicine 02/27/25 documented as of this encounter Additional Source Comments The information contained in this document represents components of the legal health record. It is not the complete legal health record.[facility]
--- OUTSIDE RECORDS SUMMARY | 2025-04-29 15:19 | XMS_ITS | Encounter Summary ---
Author Organization [facility] Address [address] [place] [address] Phone Care Team Providers Care Center Administrator Name Role Phone Prasad Nagy MD Primary Care Provide r Encounter Details Date Type Department Care Team (Late st Contact Info) Description 03/06/2025 Procedure Pass [facility], Ct Scan - [address] [address] Social History Tobacco Use Types Packs/Day Years [...] as food, clothing, or medical care? No 03/06/2025 In the past 12 months have y ou been in a relationship with a person who hurts, threatens, or tries to control you? No 03/06/2025 Are you denied basic needs s uch as food, clothing, or medical care? No 03/06/2025 In the past 12 months have y ou been in a relationship with a person who hurts, threatens, or tries to control you? No 03/06/2025 Sex and Gender Information Value Date Recorded Sex Assigned at Male 11/16/2022 2:02 PM EDT Legal Sex Male 1:44 PM EDT Gender Identity Male 11/16/2022 2:02 PM EDT Sexual Orientation Straight 07/06/2023 9: 15 AM EST documented as of this encounter Functional Status * Calculated C-SSRS Risk Score (Lifetime/Recent) Answer Date of Assessment Author No Risk Indicated 03/06/2025 8:00 PM EDT Teresita Coon RN * [place] Suicide Severity Rating Scale (Screener/Recent Self-Report) Question Answer Date of Assessment Author 1. Wish to be (Past 1 Month) No 025 8:00 PM EDT Teresita Coon RN 2. Non-Specific Active Suici tejas Thoughts (Past 1 Month) No 03/06/2025 8:00 PM EDT Teresita Coon RN 6. Suicidal Behavior (Lifetime) No 8:00 PM EDT Teresita Coon RN documented as of this encounter Plan of Treatment Not on file documented as of this encounter Visit Diagnoses Not on filedocumented in this encounter Care Teams Center Administrator Relationship Specialty Start Date End Date [facility] [address] [address] PCP - General Family Medicine 02/27/25 documented as of this encounter Additional Source Comments The information contained in this document represents components of the legal health record. It is not the complete legal health record.[facility]
--- OUTSIDE RECORDS SUMMARY | 2025-04-29 15:19 | XMS_ITS | Encounter Summary ---
Author Organization [facility] Address [address] [place] [address] Phone Care Team Providers Care Vp Respiratory Name Role Phone Prasad Nagy MD Primary Care Provide r Encounter Details Date Type Department Care Team (Late st Contact Info) Description 04/16/2025 Procedure Pass [facility], Ct Scan - [facility] [address] [place] [address] Social History Tobacco Use Types Packs/Day Years [...] 04/16/2025 8:21 AM Cami Mixon RN * [place] Suicide Severity Rating Scale (Screener/Recent Self-Report) Question [...] on filedocumented in this encounter Care Teams Vp Respiratory Relationship Specialty Start Date End Date Prasad Nagy MD [address] [address] PCP - General Family Medicine 02/27/25 documented as of this encounter Additional Source Comments The information contained in this document represents components of the legal health record. It is not the complete legal health record.[facility]
== END 2025-04-29 13:54 | disposition home or self-care (01) ==
LOC: HO.HSM 13:19
PROVIDERS: PCP Internal Medicine; Referring Provider Internal Medicine; Visit Provider Registered Nurse
DX: G44.209 Tension-type headache, unspecified, not intractable (principal); S06.9XAD Unspecified intracranial injury with loss of consciousness status unknown, subsequent encounter; G47.00 Insomnia, unspecified; G47.429 Narcolepsy in conditions classified elsewhere without cataplexy
CPT/HCPCS: 99214